=== PATIENT | male | born 1935 | race Caucasian/White ===

== ENCOUNTER 2021-03-15 12:52 | Emergency (ER) | payer MEDICARE ==
[2021-03-15 14:51] LABS: RED BLOOD COUNT 3.97 M/UL (4.20-5.50); WHITE BLOOD COUNT 9.4 K/UL (4.5-11.0)
[2021-03-15 15:12] LABS: BUN/CREATININE RATIO 16 (0-10)
== END 2021-03-15 17:48 | disposition home or self-care (01) ==
LOC: ER1 12:52
PROVIDERS: Physician Assistant
DX: S01.81XA Laceration without foreign body of other part of head, initial encounter (principal); I10 Essential (primary) hypertension; Z85.118 Personal history of other malignant neoplasm of bronchus and lung; W23.0XXA Caught, crushed, jammed, or pinched between moving objects, initial encounter; Y92.009 Unspecified place in unspecified non-institutional (private) residence as the place of occurrence of the external cause
CPT/HCPCS: 70450; 70486; 71045; 72125; 80053; 82550; 82553; 83874; 84484; 85025; 85610; 93005; 99284